=== PATIENT | male | born 1945 | race Caucasian/White ===

== ENCOUNTER → 2017-12-17 | Outpatient (CLI) | payer OTHER | LOC: MC.RAD 09:14 | DX: R92.2 Inconclusive mammogram (principal); N63.41 Unspecified lump in right breast, subareolar ==

== ENCOUNTER → 2019-06-21 | Outpatient (CLI) | payer OTHER ==
[2019-06-21 08:59] LABS: CREATININE, serum 1.32 (0.66-1.25)
== END ==
LOC: COL.LAB 08:06
PROVIDERS: Otolaryngology
DX: C02.9 Malignant neoplasm of tongue, unspecified (principal)